=== PATIENT | male | born 1985 | race Caucasian/White ===

== ENCOUNTER 2021-06-02 16:14 | Emergency (ER) | payer SELFPAY ==
--- NOTE | 2021-06-02 17:41 | ED Physician Documentation ---
PD HPI DYSPNEA - Stated complaint Stated Complaint: SOA, COUGH - Chief complaint Chief Complaint: Resp - History obtained from History obtained from: Patient - History of Present Illness Timing - onset: How many months ago (10/23) Timing - onset during: Light activity Timing - duration: Months (10/23) Timing - details: Gradual onset, Still present (worse the past week or so.), Waxing and waning Inciting event(s): URI (He states he has had some chills type feeling and cough worsening and productive of some sputum, particularly the last week or so. Onset of symptoms soon after moving here from the [place] and living in a trailer that is somewhat dirty and moldy and he is sleeping on the floor. He is a smoker.) Improved by: Rest Worsened by: Exertion, Coughing Associated symptoms: Cough, Wheezing. No: Fever, Hemoptysis, Chest pain / discomfort, Bilateral edema Similar symptoms before: Has not had sx before Review of Systems Constitutional: denies: Fever, Chills Nose: reports: Congestion. denies: Rhinorrhea / runny nose Throat: reports: Sore throat Cardiac: denies: Chest pain / pressure, Palpitations Respiratory: reports: Dyspnea, Cough, Wheezing GI: denies: Nausea, Vomiting, Diarrhea Skin: denies: Rash, Lesions PD PAST MEDICAL HISTORY - Past Medical History Cardiovascular: None Respiratory: Asthma - Past Surgical History Past Surgical History: No - Present Medications Home Medications: Ambulatory Orders Medication Instructions Recorded Confirmed Albuterol Sulf [Ventolin Hfa 3 - 4 puffs INH Q4HR PRN #1 inhaler 06/02/21 Inhaler] Amoxicillin 500 mg PO TID #20 cap 06/02/21 Cetirizine [ZyrTEC] 10 mg PO DAILY #30 tablet 06/02/21 dexAMETHasone [Decadron] 4 mg PO DAILY #7 tablet 06/02/21 - Allergies Allergies/Adverse Reactions: Allergies Allergy/AdvReac Type Severity Reaction Status Date / Time No Known Drug Allergies Allergy Verified 06/02/21 16:34 - Social History Does the pt smoke?: Yes Smoking Status: Current every day smoker Does the pt drink ETOH?: Yes Does the pt have substance abuse?: Yes - Immunizations Immunizations are current?: No Immunizations: Other immun not current - POLST Patient has POLST: No PD ED PE NORMAL - Vitals Vital signs reviewed: Yes - General General: Alert and oriented X 3, Well developed/nourished, Other (prolonged expiratory phase of breathing. Able to talk full sentences though. No accessory muscle use. ) - HEENT HEENT: Ears normal, Moist mucous membranes, Pharynx benign - Neck Neck: Supple, no meningeal sign, No adenopathy - Cardiac Cardiac: RRR, No murmur - Respiratory Respiratory: No respiratory distress. No: Clear bilaterally (no coarse sounds. Diffuse holoexpiratory wheezing and prolonged exp phase. ) - Abdomen Abdomen: Soft, Non tender - Derm Derm: Normal color, Warm and dry - Extremities Extremities: No tenderness to palpate, Normal ROM s pain, No edema, No calf tenderness / cord - Neuro Neuro: Alert and oriented X 3, No motor deficit, Normal speech Results - Vitals Vitals: Oxygen O2 Source Room air - Rads (name of study) chest xray Radiology: Prelim report reviewed (no infiltrates; no acute process. ), See rad report PD MEDICAL DECISION MAKING - ED course Complexity details: reviewed results (No infiltrates on chest x-ray. Covid test is obtained.), re-evaluated patient (responded well to MDI. ), considered differential (He is unvaccinated but did not really have fever or chills. Progressive wheezing and cough after moving to this area and exposure to molds and dust. He is a smoker. He works as a cook in the kitchen.), d/w patient Departure - Departure Disposition: 01 Home, Self Care Clinical Impression: Wheezing, Bronchitis Dyspnea Qualifiers: Dyspnea type: shortness of breath Qualified Code(s): R06.02 - Shortness of breath Condition: Stable Record reviewed to determine appropriate education?: Yes Instructions: ED Bronchitis Asthmatic Follow-Up: [facility] [Provider Group] Prescriptions: Albuterol Sulf [Ventolin Hfa Inhaler] 3 - 4 puffs INH Q4HR PRN #1 inhaler PRN Reason: Shortness Of Air/Wheezing Amoxicillin 500 mg PO TID #20 cap dexAMETHasone [Decadron] 4 mg PO DAILY #7 tablet Cetirizine [ZyrTEC] 10 mg PO DAILY #30 tablet Comments: Your chest x-ray is clear without any signs of pneumonia. You do have pretty significant wheezing and with the cough this would be likely related to bronchial irritation both from smoking as well as environmental irritants. There could also be an infectious component. No obvious pneumonia on x-ray. Your Covid test is pending. We can treated as possible bacterial bronchitis given your duration of symptoms and productive cough. I would anticipate improvement with the inhaler as well as the steroid for inflammation of the bronchials. Add cough medicine if needed for cough, and I think there is likely an environmental allergy or irritant component so am adding cetirizine antihistamine as well. Recheck if not improving well over the next several days to week. You can foll ow-up with the walk-in clinics or back here in the ER. It would also be good to obtain a primary care now that [place]. I provided the name of the least one clinic up in [place]. Discharge Date/Time: 06/02/21 19:20
[2021-06-02] MEDS ORDERED: ALBUTEROL 1 PUFF INH STA (17:50)
[2021-06-02] MEDS ORDERED: CHERRY SYRUP 10 ML UDC PO ONE (17:51)
[2021-06-02] MEDS ORDERED: DEXAMETHASONE 10 MG/ML VIAL PO STA (17:51)
[2021-06-02] MEDS ORDERED: CETIRIZINE 10 MG TABLET PO STA (17:51)
[2021-06-02] MEDS ORDERED: BENZONATATE 100 MG CAPSULE PO STA (17:51)
--- NOTE | 2021-06-02 18:27 | XRAY Report ---
PROCEDURE: Chest 1 View X-Ray INDICATIONS: cough and wheezing TECHNIQUE: One view of the chest was acquired. COMPARISON: None FINDINGS: Surgical changes and devices: None. Lungs and pleura: No pleural effusions or pneumothorax. Lungs are clear. Mediastinum: Mediastinal contours appear normal. Heart size is normal. Bones and chest wall: No suspicious bony lesions. Overlying soft tissues appear unremarkable. IMPRESSION: No acute cardiopulmonary findings Reviewed by: Medardo Norris MD on 06/02/2021 5:26 PM AKDT Approved by: Medardo Norris MD on 06/02/2021 5:26 PM AKDT Station ID: [id number]
[2021-06-02] MEDS ORDERED: AMOXICILLIN 250 MG CAPSULE PO STA (18:46)
[2021-06-02 19:09] VITALS: BP 128/79
== END 2021-06-02 19:20 | disposition home or self-care (01) ==
LOC: ED 16:14
DX: J40 Bronchitis, not specified as acute or chronic (principal); F17.200 Nicotine dependence, unspecified, uncomplicated; Z20.822 Contact with and (suspected) exposure to COVID-19
CPT/HCPCS: 71045; 87635; 94640; 94664; 99284; A9270

== ENCOUNTER 2021-10-31 14:48 | Emergency (ER) | payer MEDICAID ==
[2021-10-31 15:07] VITALS: BP 112/76
[2021-10-31 15:32] LABS: BILIRUBIN,URINE NEGATIVE (NEGATIVE); CLARITY,URINE CLEAR (CLEAR); GLUCOSE, URINE (UA) NEGATIVE (NEGATIVE); KETONES,URINE (UA) NEGATIVE (NEGATIVE); LEUKOCYTE ESTERASE, URINE NEGATIVE (NEGATIVE); NITRITE,URINE NEGATIVE (NEGATIVE); OCCULT BLOOD,URINE NEGATIVE (NEGATIVE); PROTEIN,URINE TRACE mg/dL (NEGATIVE); UROBILINOGEN,URINE 0.2 (NORMAL) E.U./dL (NORMAL)
== END 2021-10-31 16:19 | disposition left against medical advice (07) ==
LOC: ED 14:48
DX: Z53.21 Procedure and treatment not carried out due to patient leaving prior to being seen by health care provider (principal)
CPT/HCPCS: 80053; 81001; 81003; 83690; 85025; 87086